=== PATIENT | female | born 1960 | race Caucasian/White ===

== ENCOUNTER 2016-05-16 13:17 | Inpatient (IN) | payer BC ==
[2016-05-16] MEDS ORDERED: ONDANSETRON 4 MG/2ML 2 ML VIAL ONE (14:14)
[2016-05-16] MEDS ORDERED: SODIUM CHLORIDE 0.9% 1,000 ML ONE (14:14)
[2016-05-16 14:31] LABS: ABSOLUTE NEUTROPHIL COUNT 7.9 K/mm3 (1.8-7.7); BASO % 0.1 % (0.2-1.0); HEMATOCRIT 35.7 % (37.0-47.0); HEMOGLOBIN 12.7 gm/l (12.0-16.0); IMM NEUT% 0.3 % (0-1); LYMPH # 0.8 (1.0-4.8); LYMPH % 8.2 % (15-45); MEAN CELL VOLUME 82.8 fl (81.0-99.0); MEAN CORPUSCULAR HEMOGLOBIN 29.5 pg (27.0-31.0); MEAN CORPUSCULAR HGB CONC 35.6 g/dl (33.0-37.0); MEAN PLATELET VOLUME 10.3 fl (7.4-10.4); MONO # 0.5 (0.0-0.8); MONO % 4.9 % (4-12); NEUT % 86.5 % (43-75); PLATELET COUNT 354 K/mm3 (130-400); RED CELL DISTRIBUTION WIDTH 11.9 % (11.5-14.5)
[2016-05-16 14:46] LABS: CALCIUM 10.5 mg/dL (8.6-10.3)
[2016-05-16 16:24] LABS: URINE BILIRUBIN NEGATIVE (NEGATIVE); URINE BLOOD NEGATIVE (NEGATIVE); URINE GLUCOSE (UA) NEGATIVE (NEGATIVE); URINE LEUKOCYTE ESTERASE NEGATIVE (NEGATIVE); URINE NITRITE NEGATIVE (NEGATIVE); URINE PROTEIN NEGATIVE (NEGATIVE); URINE UROBILINOGEN NORMAL (0-1 mg/dl)
[2016-05-16 16:31] LABS: URINE APPEARANCE CLEAR; URINE COLOR STRAW
[2016-05-16 17:13] VITALS: BMI 25.5
[2016-05-16] MEDS ORDERED: ACETAMINOPHEN 325 MG TABLET PO PRN (18:32)
[2016-05-16] MEDS ORDERED: SODIUM CHLORIDE 0.9% 100 ML IV PRN (18:32)
[2016-05-16] MEDS ORDERED: MENTHOL/CETYLPYRD 1 EACH LOZENGE PO PRN (18:32)
[2016-05-16] MEDS ORDERED: BISACODYL 10 MG SUP PR PRN (18:32)
[2016-05-16] MEDS ORDERED: MAGNESIUM HYDROXIDE 30 ML UDCUP PO PRN (18:32)
[2016-05-16] MEDS ORDERED: BLISTEX LIPSTICK 1 EACH TP PRN (18:32)
[2016-05-16] MEDS ORDERED: BISACODYL 5 MG TABLET.EC PO PRN (18:32)
[2016-05-16] MEDS ORDERED: POTASSIUM CHLORIDE 20 MEQ in SODIUM CHLORIDE 0.9% 250 ML IV ONE (19:10)
--- NOTE | 2016-05-16 19:22 | HP ---
JERARDO CHINCHILLA : 1960 DATE OF ADMISSION: May 16, 2016 CHIEF COMPLAINT: Nausea and vomiting. HISTORY OF PRESENT ILLNESS: Prior to today's presentation, the patient has been sick with flu-like symptoms for approximately two weeks. She had a temperature for about five days, the highest being 101.7. After about five days, it came down to the 99 degree range. As she did not seem to be feeling better, she went to her primary care physician yesterday who prescribed amoxicillin for a possible infection for her. With these flu like symptoms, she has had congestion and some coughing. She feels like the congestion is going into her chest, heard gurgling breathing and that is why she presented to her primary care physician's office. Yesterday she started the amoxicillin and Mucinex and since then she has developed severe nausea with some vomiting. She has been so nauseous that she cannot even tolerate water. Along with this, she has had a headache in the back of her head and some dizziness, and then she presented to the emergency department. In the emergency department she was found to have a low sodium accompanying her symptoms. Sodium of 121 and a potassium of 3.5. She is being admitted to the hospital to treat her hyponatremia overnight. Patient has had a low sodium in the past when she has been sick before. She was not hospitalized or treated however. REVIEW OF SYSTEMS: GENERAL: Weakness, fatigue, low-grade temperature. HEENT: Congestion, no throat pain or ear pain. CARDIOVASCULAR: No chest pain or pressure. RESPIRATORY: Some cough. ABDOMEN: Nausea, vomiting, no abdominal pain. GENITOURINARY: No difficulties with urination. MUSCULOSKELETAL: Weakness. NEUROLOGIC: Headache and dizziness. PAST MEDICAL HISTORY: None. PAST SURGICAL HISTORY: Partial hysterectomy. MEDICATIONS: None. ALLERGIES TO MEDICATIONS: SULFA CAUSES VOMITING. FAMILY MEDICAL HISTORY: A grandmother with diabetes, a mother with diabetes and congestive heart failure. Father with prostate cancer. 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 She is single, no children. PHYSICAL EXAM: VITAL SIGNS: Temperature is 97.8, heart rate is 65, blood pressure 151/79, she is saturating 98% on room air. GENERAL: She is alert and oriented not in acute distress, cooperative. HEENT: Normocephalic, atraumatic. No tenderness to palpation. Mucous membranes are moist. Pupils are equal, round, reactive. Extraocular muscles are intact. There is no scleral icterus or conjunctival injection. NECK: Supple. Trachea midline. RESPIRATORY: Clear to auscultation bilaterally. No rhonci or wheezing. CARDIOVASCULAR: Positive S1, S2. It is regular. She has palpable pulses bilaterally posterior tibial and radially. No peripheral edema. ABDOMEN: Soft, nontender, no distention, rebound or guarding. MUSCULOSKELETAL: She is moving all extremities without difficulty. She has 5/5 upper and lower extremity strength. NEUROLOGIC: She is alert and oriented. LABORATORIES: Sodium 121, potassium 3.5, chloride 86, carbon dioxide 25, BUN 4, creatinine 0.8, with a glucose of 124. White blood count 9.1, hemoglobin 12.7, hematocrit 35.7 with a platelet count of 354. Urinalysis was obtained and it was clear. Negative glucose, ketones, leukocyte esterase and nitrites. ASSESSMENT: A 56-year-old female with flu-like symptoms for two weeks presented to her primary care physician and was provided with antibiotics yesterday and since then has been very nauseous with vomiting presenting to the emergency department and found to be hyponatremic. PLAN: 1. Hyponatremia. We will provide gentle IV fluids, treat her nausea, and put her on seizure precautions. 2. Hypokalemia. We will provide potassium supplementation.
[2016-05-16] MEDS ORDERED: PUMP TUBING ONE (19:48)
[2016-05-16] MEDS: SODIUM CHLORIDE 0.9% 1,000 ML IV SCH (19:54)
[2016-05-16] MEDS: DOCUSATE SODIUM 100 MG CAPSULE PO SCH (20:01)
[2016-05-17 00:49] LABS: ALB/GLOB RATIO 1.4 (>1.0); ALBUMIN 3.8 gm/dL (3.5-5.7); CALCIUM 9.1 mg/dL (8.6-10.3)
[2016-05-17] MEDS: SODIUM CHLORIDE 0.9% 1,000 ML IV SCH (04:39)
[2016-05-17 07:05] LABS: CALCIUM 8.9 mg/dL (8.6-10.3)
[2016-05-17 07:12] VITALS: BP 126/70
[2016-05-17 07:53] LABS: MONO TEST NEGATIVE (NEGATIVE)
--- NOTE | 2016-05-17 08:00 | PDOC5 ---
ADMIT DATE: 05/16/16 DISCHARGE DATE: 05/17/16 ADMISSION DIAGNOSES: Hyponatremia Discharge Diagnoses: Hyponatremia Hypokalemia Upper respiratory Tract Infection PROCEDURES PERFORMED THIS HOSPITALIZATION: None CONSULTATIONS: None HOSPITAL COURSE: This is a 56 year old female who presented to the emergency department following 2 weeks of fever, cough and fatigue. She had seen her PCP a day prior to ED presentation and was provided with amoxicillin. She took a dose of the amoxicillin and developed severe nausea and several episodes of vomiting. In the ED, she was found to be hyponatremic with a sodium of 121. She was admitted to the hospital for IVF hydration and her sodium rebound to 138. With with fatigue, mononucleosis testing was performed and was negative. - Exam Vital Signs Temperature 98.1 F 05/17/16 07:11 Pulse Rate 65 05/17/16 07:11 Respiratory Rate 16 05/17/16 07:11 Blood Pressure 126/70 05/17/16 07:11 O2 Saturation by Pulse Oximetry 97 05/17/16 07:11 Oxygen Delivery Method Room Air Oxygen Flow Rate 0 General: Alert, Oriented x3, Cooperative, No Acute Distress HEENT: Atraumatic, PERRLA, EOMI, Mucous membr. moist/pink Lungs: Clear to Auscultation Bilaterally, Normal Air Movement, Other (no craklce or wheeze) Cardiovascular: Regular Rate and Rhythm, Normal S1, Normal S2 Abdomen: Soft, Non-Distended, No Rigid, No Tenderness, No Rebounding Extremities: No Cyanosis, No Edema, No Tenderness Peripheral Pulses: Radial (L): 2+, Radial (R): 2+, Posterior Tibialis (L): 2+, Posterior Tibialis (R): 2+ Neurological: Normal Speech Psych/Mental Status: Normal Mood - Results Laboratory 05/17/16 06:20 05/17/16 05/17/16 06:20 00:25 BUN 5 L 5 L - Problems:Assessment/Plan (1) Hyponatremia Status: Acute Assessment/Plan: Sodium of 121 rebound to 138 with IVF hydration. Due to poor PO intake and vomiting (2) Hypokalemia due to inadequate potassium intake Status: Acute Assessment/Plan: 2nd to poor PO intake and vomiting. Resolved with replacement (3) Upper respiratory infection, viral Status: Acute Assessment/Plan: symptoms improving - Discharge Plan Additional Instructions: Honey and Alleve to help with cough. Plenty of fluids and rest Condition: Stable Disposition: Home
[2016-05-17] MEDS ORDERED: NAPROXEN 500 MG TABLET PO SCH (09:00)
[2016-05-17] MEDS: DOCUSATE SODIUM 100 MG CAPSULE PO SCH (09:04)
== END 2016-05-17 11:35 | disposition home or self-care (01) | DRG 641 ==
LOC: ED 13:17 → INTOOBSV 16:04 → MS 16:04 → OBSVTOIN 16:04 → MS 23:48
PROVIDERS: ADMIT Family Medicine; ATTEND Family Medicine
DX: E87.1 Hypo-osmolality and hyponatremia (principal); J06.9 Acute upper respiratory infection, unspecified; E87.6 Hypokalemia